=== PATIENT | male | born 1965 ===

== ENCOUNTER 2018-07-15 07:24 | Day surgery (SDC) | payer OTHER ==
[2018-07-14 13:32] VITALS: BMI 26.6
[2018-07-15] MEDS ORDERED: Lidocaine 2% Inj (20ml) ONE (08:12)
[2018-07-15] MEDS ORDERED: Nitroglycerin 50mg in D5W 50 MG/250 ML BOTTLE IV ONE (08:13)
[2018-07-15] MEDS ORDERED: Iodixanol 320 MG/ML 100 ML BOTTLE IV ONE (08:13)
[2018-07-15] MEDS ORDERED: Adenosine 90 mg/30mL IV ONE (08:13)
[2018-07-15] MEDS ORDERED: Verapamil 2 ML ONE (08:13)
[2018-07-15] MEDS ORDERED: Iohexol 350mgl/ml 50 ML ONE (08:13)
[2018-07-15] MEDS ORDERED: Phenylephrine 10 mg/ml Inj ONE (08:13)
[2018-07-15] MEDS ORDERED: Iodixanol 320 MG/ML 200 ML BOTTLE IV ONE (08:13)
[2018-07-15] MEDS ORDERED: Midazolam 2 MG/2 ML VIAL ONE ×3 (09:27→09:42)
[2018-07-15] MEDS ORDERED: DiphenhydrAMINE 50 mg/ml Inj ONE (09:32)
[2018-07-15] MEDS ORDERED: Famotidine 20mg/50ml 20 MG/50 ML BAG IVPB ONE (09:32)
[2018-07-15] MEDS ORDERED: Bacitracin 500 Units/gm Oint Foilpak UD TOP ONE (10:39)
[2018-07-15] MEDS ORDERED: HYDROmorphone 1 mg/ml ISec IVP ONE (10:42)
[2018-07-15] MEDS ORDERED: Metoprolol Succinate 25 mg XL Tab PO ONE (10:46)
[2018-07-15 12:50] VITALS: TEMP 97.8
[2018-07-15] MEDS ORDERED: Bacitracin 500 Units/gm Oint Foilpak UD ONE (15:53)
[2018-07-15 16:07] VITALS: RESP 18
--- NOTE | 2018-07-15 16:20 | CARDCATH ---
PROCEDURE DATE: 07/15/2018 INDICATIONS: Mr. Callejas is a 53-year-old male with history of HIV, who was consulted for evaluation of preoperative cardiovascular examination. The patient had presented on day after [place] to work with mental status changes after sustaining a fall with possible sepsis. He had positive cardiac enzymes on presentation. He had a prolonged hospitalization course of three weeks and was being planned for possible neurosurgical evaluation and underwent a nuclear stress test prior to his preoperative cardiovascular risk stratification, which showed ischemia involving septal bashir. The patient underwent a cardiac catheterization at [facility] showing RCA with LAD high grade mid LAD calcific stenosis. The patient was brought to the [facility] for the intervention of the LAD, which we performed diagnostic cardio-angiogram via right atrial approach, PTCA stenting of modality, deployment of 3.5 x 30 and 4 x 30 Cordell drug-eluting stent, regeneration from 85% out of 0% BELEM-3 flow, 6-Khmer left femoral access, Angio-Seal for hemostasis. ANGIOGRAPHIC FINDINGS: LAD lesion was identified. XB 3.5 guiding catheter was used to engage the left coronary system. Prowater wire was used to negotiate through the lesion and subsequently lesion was predilated with 2.5 and 3.5 noncompliant balloon. Subsequently, lesion was stented with a 3.5 x 30 and 4 x 30 Kodak drug-eluting stent. Final angiogram done showed regeneration down to 0% BELEM-3 flow. IMPRESSION: Successful percutaneous transluminal coronary angioplasty stenting of mid left anterior descending artery, proximal left anterior descending artery, 85% calcific stenosis, deployment of 4 x 30 in the and 3.5 x 30 in mid left anterior descending artery, degeneration down to 0% BELEM-3 flow. RECOMMENDATIONS: The patient is to undergo staged intervention of RCA within 1 to 2 weeks' time. Maximus Cramer MD
[2018-07-15 18:19] VITALS: BP 125/80; PULSE 61
== END 2018-07-15 19:34 | disposition short-term general hospital (02) ==
LOC: EDBD → CATH 07:24 → 2RSO 10:45 → CATH 19:34
PROVIDERS: ATTEND Internal Medicine Interventional Cardiology
DX: I25.10 Atherosclerotic heart disease of native coronary artery without angina pectoris (principal); Z21 Asymptomatic human immunodeficiency virus [HIV] infection status
CPT/HCPCS: 85175; 93454; 99152; 99153; C1725; C1769 ×3; C1874 ×2; C1887; C1894; C9600; J1170; J1200; J1644 ×2; J2250; J2930; J3010; Q9966; Q9967

== ENCOUNTER 2018-08-05 11:08 | Day surgery (SDC) | payer MEDICARE ==
[2018-07-24 08:38] VITALS: BMI 25.9
[2018-08-05 12:02] LABS: BASO # 0.01 K/mm3 (0.0-2.0); BASO % 0.2 % (0.0-3.0); EOS # 0.1 (0.0-0.7); EOS % 3.4 % (1.5-5.0); HEMOGLOBIN 10.6 g/dL (14.0-18.0); LYMPH # 1.5 (1.2-3.4); LYMPH % 36.9 % (22.0-35.0); MEAN CELL VOLUME 96.4 fl (80.0-105.0); MEAN CORPUSCULAR HEMOGLOBIN 29.4 pg (25.0-35.0); MEAN CORPUSCULAR HGB CONC 30.5 g/dl (31.0-37.0); MEAN PLATELET VOLUME 8.9 fl (7.0-11.0); MONO # 0.3 (0.1-0.6); MONO % 7.5 % (1.0-6.0); RBC 3.61 10^6/uL (3.5-6.1); RED CELL DISTRIBUTION WIDTH 22.3 % (11.5-14.5); WHITE BLOOD COUNT 4.2 10^3/uL (4.5-11.0)
[2018-08-05 12:12] LABS: INR 1.07; PARTIAL THROMBOPLASTIN TIME 31.4 Seconds (26.9-38.3); PROTHROMBIN TIME 12.1 SECONDS (9.4-12.5)
[2018-08-05 12:13] VITALS: O2SAT 96
[2018-08-05 12:13] LABS: BLOOD UREA NITROGEN 19 mg/dL (7-21); CALCIUM 9.8 mg/dL (8.4-10.5); GFR NON-AFRICAN AMERICAN > 60
[2018-08-05] MEDS ORDERED: Verapamil 0 ML ONE (12:30)
[2018-08-05] MEDS ORDERED: Lidocaine 2% Inj (20ml) ONE (12:30)
[2018-08-05] MEDS ORDERED: Iohexol 350mgl/ml 50 ML ONE (12:31)
[2018-08-05] MEDS ORDERED: Nitroglycerin 50mg in D5W 0 MG/0 ML BOTTLE IV ONE (12:31)
[2018-08-05] MEDS ORDERED: Iodixanol 320 MG/ML 200 ML BOTTLE IV ONE (12:31)
[2018-08-05] MEDS ORDERED: DiphenhydrAMINE 50 mg/ml Inj ONE ×2 (12:32→14:42)
[2018-08-05] MEDS ORDERED: Famotidine 20mg/50ml 20 MG/50 ML BAG IVPB ONE (12:34)
[2018-08-05] MEDS ORDERED: Midazolam 2 MG/2 ML VIAL ONE ×4 (14:01→14:32)
[2018-08-05] MEDS ORDERED: Morphine 2 mg/ml ISec ONE (14:27)
[2018-08-05] MEDS ORDERED: Adenosine 90 mg/30mL IV ONE (14:34)
[2018-08-05] MEDS ORDERED: Sodium Chloride 0.9% 1,000 ML IV SCH (15:15)
[2018-08-05] MEDS ORDERED: Sodium Chloride 0.45% 1,000 ML IV SCH (15:15)
[2018-08-05 18:29] VITALS: RESP 20
[2018-08-05 18:32] VITALS: TEMP 97.4
[2018-08-05] MEDS ORDERED: Morphine 4 mg/ml ISec IVP ONE (18:45)
--- NOTE | 2018-08-05 20:15 | CARDCATH ---
PROCEDURE DATE: 08/05/2018 INDICATIONS: Mr. Callejas is a 53-year-old male who underwent a cardiac catheterization last week for evaluation of preoperative cardiovascular risk stratification, was noted to have high grade mid LAD calcific stenosis. Patient was brought back for staged intervention. PROCEDURES PERFORMED: 1. Coronary angiogram with FFR graded PCI of ramus intermedius, 2. Percutaneous transluminal coronary angioplasty stenting of ramus intermedius with deployment of 3.0 x 18 mm Center drug-eluting stent, regeneration from 70% down to 0% BELEM-3 flow, FFR of ramus intermedius physiologically significant at 0.75. A 6-[place]awk left femoral access. Angio-Seal closure device for hemostasis. ANGIOGRAPHIC FINDINGS: Left main, large sized vessel, bifurcates into LAD, circumflex and ramus intermedius. LAD and mid stent patent. Ramus intermedius has mid 65 to 70% stenosis. Left circumflex runs in the groove. RCA is a small nondominant vessel intervention performed, XB 3.5 guiding catheter used in the left main system. FFR wire was used to cross the lesion. After adenosine infusion, FFR was physiologically significant at 0.75, subsequently and was predilated with a 2.5 balloon and subsequently stented with a 3.0 x 18 Center drug-eluting stent. Final angiogram done showed regeneration down to 0% BELEM 3 flow. IMPRESSION: Successful percutaneous transluminal coronary angioplasty stenting of ramus intermedius branch with deployment of 3.0 x 18 Center drug-eluting stent. RECOMMENDATIONS: Continue the patient on dual antiplatelet therapy, put the patient on guideline-directed therapy for CAD. The patient can be discharged home in 6 hours and follow up with Dr. Cramer in 1 to 2 weeks' time. Maximus Cramer MD
[2018-08-05 21:29] VITALS: BP 108/66; PULSE 78
== END 2018-08-05 21:51 | disposition designated cancer center or children's hospital (05) ==
LOC: CATH 11:08 → 2RSO 15:35 → CATH 21:51
PROVIDERS: ATTEND Internal Medicine Interventional Cardiology
DX: I25.10 Atherosclerotic heart disease of native coronary artery without angina pectoris (principal); I10 Essential (primary) hypertension; E78.5 Hyperlipidemia, unspecified; Z21 Asymptomatic human immunodeficiency virus [HIV] infection status
CPT/HCPCS: 36415; 80048; 83036; 85025; 85175; 85610; 85730; 86850; 86900; 93454; 93571; 99152; 99153; C1725; C1760; C1769 ×3; C1874; C1887 ×3; C1894; C9600; J0153; J1200; J1644 ×2; J2250; J2270 ×2; J2930; J3010; J7030; Q9966; Q9967